=== PATIENT | female | born 1995 | race Caucasian/White ===

== ENCOUNTER 2025-01-19 09:25 | Emergency (ER) | payer OTHER, SELFPAY ==
[2025-01-19] VITALS (8 sets, daily range): BP systolic 110–130; BP diastolic 60–75; PULSE 80–112; RESP 16–28; TEMP 36.7–36.8; O2SAT 96–98; BMI 24.3
--- NOTE | 2025-01-19 09:31 | ECG_ITS ---
APPROVED REPORT Exam: Resting ECG HR:93 bpm ECG Measurements Heart Rate 93 AXES WY 138 P 89 QRSd 80 QRS 89 QT 380 T 83 QTc 431 Conclusion SINUS RHYTHM NORMAL ECG Electronically signed by : BRYANT ARAUJO, 01/19/2025 15:26:17
[2025-01-19] MEDS: ONDANSETRON 4MG/2ML VIAL 4 MG IV (09:45)
[2025-01-19 09:52] LABS: Microscopic, Urine URINE MICROSCOPIC (MICROSCOPIC)
--- NOTE | 2025-01-19 09:52 | ED_ITS ---
Discharge Plan Disposition Patient Disposition: Xfer Other Condition: Good Prescriptions Prescriptions: New metoclopramide HCl [Reglan] 10 mg tablet 10 mg PO Q6H PRN (Reason: nausea and vomiting) Qty: 14 0RF famotidine [Pepcid] 20 mg tablet 20 mg PO BID 28 Days Qty: 56 0RF Activity Restrictions/Add. Instructions Additional Instructions/Restrictions: You were evaluated in the emergency department today. Labs and CT scan are reassuring with exception of dehydration related to your vomiting. Return to the emergency department for new or worsening symptoms. Clinical Impressions Clinical Impression: Polysubstance abuse, Alcohol consumption binge drinking, Cyst of left ovary, Colitis Stand Alone Forms Stand Alone Forms: Work/School Release Instructions Patient Instructions: DI for Alcohol Use Disorder, DI for Nausea -- Adult, DI for Alcohol Poisoning, DI for Alcoholic Gastritis, DI for Cannabinoid Hyperemesis Syndrome Print Language Print Language: Slovak Discharge ED Provider: Talita Kelly General Adult HPI General Chief complaint: Nausea/Vomiting/Diarrhea Stated complaint: Nausea and vomiting Time Seen by Provider: 01/19/25 09:42 Mode of Arrival: EMS Source of Information: Patient Description of Symptoms (Recalled from ER Triage Doc. by RN): pt roomate called 911 and pt states shes here for vomting and abd pain, pt is a binge drinker and last drink was at midnight, pt began vomting at 0330, pt states she drank 1 pint of vodkaa and took 3 50 mg trazadone, pt bilateral legs are covered in bruises from varying states of healiing and sizes and shapes. pt states she has low iron and fell last night, pt states she is also having leg spasms History of Present Illness HPI narrative: This patient is a 29-year-old female who reports a history of binge drinking and marijuana use presenting to the emergency department for evaluation concern for vomiting and generalized abdominal pain. Patient states that she drank vodka all night last night, and she has been vomiting since about 3:30 in the morning. She states that she is vomiting straight stomach acid and cannot keep anything down. She is having cramping and pain all over her abdomen but no localizable pain in any 1 specific area. She has prior history of C-sections but denies prior surgical abdominal history otherwise. No other medical problems noted. She is having leg cramps currently. She has multiple bruises, which she states are from falls in the setting of low iron. She denies any abuse or significant traumatic injury Related Data Previous Rx's ?Medication ?Instructions ?Recorded famotidine 20 mg tablet (Pepcid) 20 mg PO BID 4 weeks #56 tabs 01/19/25 metoclopramide HCl 10 mg tablet 10 mg PO Q6H PRN nause a and 01/19/25 (Reglan) vomiting #14 tabs Allergies Allergy/AdvReac Type Severity Reaction Status Date / Time cephalexin (From Keflex) Allergy Hives Verified 01/19/25 09:41 [facility] Disclaimer: The information contained in this section may have been updated after the patient was seen, as this information can be updated by other users. Social History Smoking Status: Current every day smoker alcohol intake: current current occupational status: unemployed Travel in the last 8 weeks?: None ROS Obtained: Yes All systems reviewed & no additional complaints except as documented Physical Exam General General appearance: alert Comment: Actively vomiting and retching Head Head exam: atraumatic and normocephalic Eye Eye exam: Present normal appearance, PERRL and EOMI ENT ENT exam: Present normal exam, normal oropharynx, mucous membranes moist and normal external ear exam Neck Neck exam: Present normal inspection, full ROM and trachea midline; Absent tenderness Chest Chest inspection: Present normal inspection and symmetric chest wall rise; Absent tenderness Respiratory Respiratory exam: Present normal lung sounds bilaterally; Absent respiratory distress, wheezes, stridor or accessory muscle use Cardiovascular Cardiovascular exam: Present regular rate and normal rhythm Abdominal Exam Abdominal exam: Present soft and tenderness (Mild generalized); Absent distention, guarding, rebound or rigidity Extremities Exam Extremities exam: Present normal inspection, full ROM and normal capillary refill; Absent tenderness or edema Back Exam Back exam: Present normal inspection and full ROM; Absent tenderness Neurological Exam Neurological exam: Present alert, oriented X3, CN II-XII intact and normal gait; Absent motor sensory deficit Psychiatric Psychiatric exam: Present normal affect and normal mood Skin Skin exam: Present warm and dry Medical Decision Making Medical Records Medical records reviewed: Yes I reviewed the patient's medical records. Screening: Per USPSTF and CDC recommendations, given the prevalence of disease in our region, it is our hospital?s policy to screen for HIV and viral Hepatitis for all patients aged 18 and over and those with ongoing risk factors. Darryn Inquiry Pt receiving controlled substance: No Vital Signs: 01/19/25 09:40 01/19/25 10:00 01/19/25 10:30 Temperature 98.2 F Temperature Source Oral Pulse Rate 104 H 112 H Pulse Rate [Left Radial] 101 H Respiratory Rate 28 H 18 16 Blood Pressure 130/72 128/70 Blood Pressure [Right Arm] 125/68 Blood Pressure Mean 84 84 Blood Pressure Mean [Right Arm] 87 02 Sat by Pulse Oximetry 98 96 98 Oxygen Delivery Method Room Air 01/19/25 12:12 01/19/25 12:35 01/19/25 13:00 Temperature Temperature Source Pulse Rate 110 H Pulse Rate [Left Radial] Respiratory Rate 16 18 18 Blood Pressure 110/60 117/67 124/75 Blood Pressure [Right Arm] Blood Pressure Mean Blood Pressure Mean [Right Arm] 02 Sat by Pulse Oximetry 97 Oxygen Delivery Method 01/19/25 14:38 01/19/25 14:41 Temperature 98.0 F 98.0 F Temperature Source Pulse Rate 80 80 Pulse Rate [Left Radial] Respiratory Rate 20 20 Blood Pressure 124/75 124/75 Blood Pressure [Right Arm] Blood Pressure Mean Blood Pressure Mean [Right Arm] 02 Sat by Pulse Oximetry Oxygen Delivery Method Room Air Lab Data Lab results reviewed: Yes I reviewed the patient's lab results. Lab Results 01/19/25 09:30: WBC 12.2 H, RBC 4.63, Hgb 14.6, Hct 42.5, MCV 91.8, MCH 31.5 H, MCHC 34.4, RDW 13.7, Plt Count 361, MPV 9.6, Neut % (Auto) 82.1 H, Lymph % (Auto) 12.4, Braxton % (Auto) 4.3, Eos % (Auto) 0.4, Baso % (Auto) 0.5, Neut # (Auto) 10.0 H, Lymph # (Auto) 1.5, Braxton # (Auto) 0.5, Eos # (Auto) 0.1, Baso # (Auto) 0.1, Sodium 138, Potassium 3.8, Chloride 105, Carbon Dioxide 20 L, Anion Gap 16.8 H, BUN 9, Creatinine 0.60, Estimated Creat Clear 160, Estimated GFR 119, Est GFR ( Amer) 144, Glucose 130 H, Calcium 9.7, Magnesium 1.7, Total Bilirubin 0.6, AST 39 H, ALT 28, Alkaline Phosphatase 118, Total Protein 7.9, Albumin 4.4, Globulin 3.5 H, Albumin/Globulin Ratio 1.3, Lipase 58, TSH 0.94, Thyroxine (T4) 10.5, Salicylates < 1.0 L, Acetaminophen < 10 L, P lasma/Serum Alcohol 57 H, HCV Ab JANIYA w/Rflx PCR Qn Negative, HIV Ag/Ab Combo Qual Negative 01/19/25 09:45: Urine Color Yellow, Urine Appearance Clear, Urine pH 6.5, Ur Specific [place] 1.025, Urine Protein 1+ A, Urine Glucose (UA) Negative, Urine Ketones 1+, Urine Blood Negative, Urine Nitrate Negative, Urine Bilirubin Negative, Urine Urobilinogen 0.2, Ur Leukocyte Esterase Negative, Urine RBC Occasional, Urine WBC None, Ur Squamous Epith Cells 5-10, Urine Bacteria Trace, Urine HCG, Qual Negative, Urine Opiates Screen Negative, Urine Methadone Screen Negative, Ur Barbituates Screen Negative, Ur Phencyclidine Scrn Negative, Ur Amphetamines Screen Negative, U Benzodiazepines Scrn Negative, Urine Cocaine Screen Positive H, U Marijuana (THC) Screen Positive H 01/19/25 09:48: VBG pH 7.50 H, VBG pCO2 27.4 L, VBG pO2 136.4 H, VBG HCO3 20.8 L , VBG Total CO2 21.6 L, VBG O2 Saturation 98.9 H, VBG Base Excess -2.4, VBG Lactic Acid 6.0 H 01/19/25 09:30 01/19/25 09:30 Orders (Tests/Meds): ED MEDICATIONS Discontinued Medications Generic Name Dose Route Start Last Admin Trade Name Julio Cesarq PRN Reason Stop Dose Admin Acetaminophen 1,000 mg 01/19/25 11:04 01/19/25 11:56 Acetaminophen 1,000mg/100ml Vial IV 01/19/25 11:05 1,000 mg ONCE ONE Administration Diphenhydramine HCl 25 mg 01/19/25 11:05 01/19/25 11:48 Diphenhydramine 50mg/Ml Vial IV 01/19/25 11:06 25 mg ONCE ONE Administration Droperidol 2.5 mg 01/19/25 09:47 01/19/25 10:04 Droperidol 5mg/2ml Vial IV 01/19/25 09:48 2.5 mg ONCE ONE Administration Famotidine 20 mg 01/19/25 11:04 01/19/25 11:50 Famotidine 20mg/2ml Vial IV 01/19/25 11:05 20 mg ONCE ONE Administration Lactated Ringer's 1,920 mls @ 960 mls/hr 01/19/25 09:49 01/19/25 10:05 Lactated Ringer's 1000 Ml Bag 30 ml/kg infuse over 2 hr (1920 ml) 01/19/25 11:48 960 mls/hr IV Administration .Q2H ONE Iopamidol 75 ml 01/19/25 11:24 01/19/25 11:24 Iopamidol-370 (76%);100ml Bottle IV 01/19/25 11:25 75 ml ONCE ONE Administration Ketorolac Tromethamine 15 mg 01/19/25 11:04 01/19/25 11:54 Ketorolac 30mg/Ml Vial IV 01/19/25 11:05 15 mg ONCE ONE Administration Metoclopramide HCl 10 mg 01/19/25 11:05 01/19/25 11:55 Metoclopramide Hcl 10mg/2ml Vial IVP 01/19/25 11:06 10 mg ONCE ONE Administration Ondansetron HCl 4 mg 01/19/25 09:41 01/19/25 09:45 Ondansetron 4mg/2ml Vial IV 01/19/25 09:42 4 mg ONCE ONE Administration Sodium Chloride 8 ml 01/19/25 11:04 01/19/25 11:52 Sodium Chloride 0.9% 10ml Vial IV 02/18/25 11:03 8 ml NEEDED PRN Administration dilute pepcid Sodium Chloride 10 ml 01/19/25 11:24 01/19/25 11:24 Sodium Chloride 0.9% 10ml Syr (Rad Only) IV 01/19/25 11:25 10 ml ONCE ONE Administration ORDERS Category Date Time Status CT abdomen pelvis w con Stat Cat Scan 01/19/25 10:57 Completed Consult Horticultural Manager [CONS] Routine Cons 01/19/25 09:56 Active Acetaminophen Stat Lab 01/19/25 09:30 Completed Complete Blood Count Auto Diff Stat Lab 01/19/25 09:30 Completed Comprehensive Metabolic Panel Stat Lab 01/19/25 09:30 Completed Ethanol [Ethyl Alcohol] Stat Lab 01/19/25 09:30 Completed HIV Combo Stat Lab 01/19/25 09:30 Completed Hepatitis C Ab Qual. W/ RFX Stat Lab 01/19/25 09:30 Completed Lactic Acid Follow Up (RFLX 1) Stat Lab 01/19/25 13:58 Ordered Lipase Stat Lab 01/19/25 09:30 Completed MAG [Magnesium] Stat Lab 01/19/25 09:30 Completed Salicylate Stat Lab 01/19/25 09:30 Completed T4 (Thyroxine) Stat Lab 01/19/25 09:30 Completed TSH [Thyroid Stimulating Hormone] Stat Lab 01/19/25 09:30 Completed UA [Urinalysis and Microscopic] Stat Lab 01/19/25 09:45 Completed UDS [Drug Screen,Urine] Stat Lab 01/19/25 09:45 Completed Urine , HCG Qual. Stat Lab 01/19/25 09:45 Completed VBG [Venous Blood Gas] Stat RT 01/19/25 09:48 Completed ECG Data Tracing #1: I reviewed this ECG and interpreted as documented below: Normal sinus rhythm with ventricular rate of [address] changes concerning for STEMI. Normal axis and intervals ECG initial impression date: 01/19/25 ECG initial impression time: 09:42 Medical Decision Narrative: In summary, this patient is a 29-year-old female presenting to the Emergency Department for evaluation of generalized abdominal pain, nausea, and vomiting in the setting of binge drinking and marijuana use. Differential diagnoses considered include but are not limited to cyclic vomiting syndrome, cannabis hyperemesis syndrome, alcohol withdrawal, alcohol intoxication, cholecystitis, pancreatitis, gastroenteritis, appendicitis among others. Ruling out the most morbid conditions drove assessment. It should be noted patient's history includes binge drinking which is not at goal therapy. This complicates all aspects of care by increasing patient's risk for morbidity. On exam, the patient is sitting upright actively vomiting and retching. She has generalized abdominal tenderness but nothing localizable. Vitals are reassuring on cardiac telemetry and she is afebrile and nontoxic. EMS arrived to the patient who noted she was stable en route. Patient was initially given Zofran here without any improvement in her symptoms. She continued vomiting. Workup included CBC, CMP, lipase, magnesium, phosphorus, ethanol level, urinalysis, urine drug screen, TSH, T4, acetaminophen, salicylate, VBG, test, EKG. EKG obtained is reassuring. She was given a bolus of IV fluids as well as IV droperidol for symptomatic improvement, as she initially got no improvement with Zofran. She was also given sepsis bolus of IV fluids. Labs obtained demonstrate mild leukocytosis, elevation in lactic at 6, respiratory alkalosis, mildly elevated AST in the setting of alcohol consumption. Urinalysis is not concerning for infection. Urine drug screen is positive for cocaine and marijuana. Serum alcohol level is 57. On multiple subsequent reassessments, the patient continues to have vomiting and abdominal pain. In addition to the droperidol, fluids, and Zofran, she was then given IV Reglan, Benadryl, Pepcid, acetaminophen, and Toradol to assess for symptomatic improvement. For continued symptoms, elected to obtain CT abdomen/pelvis with IV contrast. I independently interpreted CT prior to radiology read and noted nonspecific inflammation of her intestines without acute obstructive process, no appendicitis, no cholecystitis. Patient did have good improvement after administration of these medications and she is resting comfortably with benign abdominal exam, reassuring vitals. She is able to tolerate oral intake of fluids. Given this, feel that she is appropriate for discharge home. Will prescribe Reglan and Pepcid. global mobility specialist discussed placement in treatment center for the patient with her substance use. Patient is agreeable with this. She was transported in stable condition. Critical Care Critical Care Time Critical Care Time: No
--- OUTSIDE RECORDS SUMMARY | 2025-01-19 09:55 | XMS_ITS | Encounter Summary ---
Author Organization Healthcare Address [address] [place] [address] Care Team Providers Care Supervisor Agency Appointments Name Role Phone Sead Lerma APRN Primary Care Provider [phone] Encounter Details Date Type Department Care Team ([facility] st Contact Info) Description 02/20/2022 Outside Procedure External Location [address] [place] [id number] ProviderCony Social History Tobacco Use Types Packs/Day Years Used Date Smoking Tobacco: Every Day Cigarettes Smokeless Tobacco: Current Alcohol Use Standard Drinks/Week Comments Never 0 (1 standard drink = 0.6 oz pur e alcohol) PHQ-2 Answer Date Recorded Patient Health Questionnaire-2 Score 0 04/30/2021 Magdalena Depression Scale Answer Date Recorded Magdalena Depression Scale Total 0 01/17/2022 The thought of harming myself has occurred to me . Never 01/17/2022 Comments No Sex and Gender Information Value Date Recorded Sex Assigned at Not on file Legal Sex Female 5:59 PM EDT Gender Identity Not on file Sexual Orientation Not on file COVID-19 Exposure Response Date Recorded In the last 10 days, have yo u been in contact with someone who was confirmed or suspected to have Coronavirus/COVID-19? No / Unsure 02/04/2022 3:29 PM EDT documented as of this encounter Plan of Treatment Not on file documented as of this encounter Procedures Procedure Name Priority Date/Time Associated Diagnosis Comments XR CHEST 1 VIEW 02/20/2022 1:05 PM EDT documented in this encounter Results * XR Chest 1 View (02/20/2022 1:05 PM EDT) Anatomical Region Laterality Modality Chest Radiographic Helen ging 02/20/2022 1:05 PM EDT Narrative 02/20/2022 1:44 [place] [address] Name: NEL DUONG Exam Date: 02/20/2022 : 1995 Age 26 Gender: F Physician: TAYA MERCER Facility: [facility] Facility HSV: Outpatient Exam: CHEST PORTABLE CHEST, 1 view HISTORY: Chest pain COMPARISON: None. FINDINGS: The lungs are clear. There is no evidence of effusion or other pleural disease. The mediastinum has a normal appearance. The cardiac silhouette is unremarkable. IMPRESSION: Unremarkable chest exam. Dictated By: Tricia Seo Transcribed By: Tricia Miranda Transcribed On: 02/20/2022 1:33 PM Electronically signed by: Tricia Seo 02/20/2022 Thank you for referring NEL DUONG to [facility]. Legally authenticated by GEMA ARREDONDO 2022-02-20 13:33:16 Procedure Note Provider, [facility] - 02/20/2022 [place] [address] Name: NEL DUONG Exam Date: 02/20/2022 : 1995 Age 26 Gender: F Physician: TAYA MERCER Facility: [facility] Facility HSV: Outpatient Exam: CHEST PORTABLE CHEST, 1 view HISTORY: Chest pain COMPARISON: None. FINDINGS: The lungs are clear. There is no evidence of effusion or other pleural disease. The mediastinumhas a normal appearance. The cardiac silhouette is unremarkable. IMPRESSION: Unremarkable chest exam. Dictated By: Tricia Seo Transcribed By: Tricia Miranda Transcribed On: 02/20/2022 1:33 PM Electronically signed by: Tricia Seo 02/20/2022 Thank you for referring NEL DUONG to [facility]. Legally authenticated by GEMA ARREDONDO 2022-02-20 13:33:16 us Generic [place] Provider IMG XR PROCEDURES Fi nal Result documented in this encounter Visit Diagnoses Not on filedocumented in this encounter Additional Health Concerns Infection Onset Date Last Indicated Resolved Time COVID-19 Rule-Out 05/01/2023 05/01/2023 05/01/2023 10:12 PM EST COVID 19 (Confirmed) 05/01/2023 05/01/2023 023 5:23 AM EST documented as of this encounter Care Teams Supervisor Agency Appointments Relationship Specialty Start Date End Date Seda Lerma, CITY DISTRIBUTION CLERK [address] [place] [id number] PCP - General 11/03/20 documented as of this encounter
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
--- OUTSIDE RECORDS SUMMARY | 2025-01-19 09:55 | XMS_ITS | Encounter Summary ---
Author Organization Healthcare Address [address] [place] [address] Care Team Providers Care Plastic Surgery Assistant Name Role Phone Seda Lerma APRN Primary Care Provider [phone] Encounter Details Date Type Department Care Team ([facility] st Contact Info) Description 01/06/2024 Outside Procedure External Location [address] [place] [id number] ProviderCony Social History Tobacco Use Types Packs/Day Years Used Date Smoking Tobacco: Every Day Cigarettes 0.5 5 Passive Smoke Exposure: Current Comments:vapes Alcohol Use Standard Drinks/Week Comments Not Currently 0 (1 standard drink = 0.6 oz pur e alcohol) 4 months sober Humiliation, Afraid, Rape, and Kick questionnair e Answer Date Recorded Within the last year, have y ou been afraid of your partner or ex-partner? No 09/16/2023 Within the last year, have y ou been humiliated or emotionally abused in other ways by your partner or ex-partner? No Within the last year, have y ou been kicked, hit, slapped, or otherwise physically hurt by your partner or ex-partner? No 09/16/2023 Within the last year, have y ou been raped or forced to have any kind of sexual activity by your partner or ex-partner? No 09/16/2023 PHQ-2 Answer Date Recorded Patient Health Questionnaire-2 Score 1 12/01/2023 Hunger Vital Sign Answer Date Recorded Within the past 12 months, y ou worried that your food would run out before you got the money to buy more. Never true 09/16/19 24 Within the past 12 months, t he food you bought just didn't last and you didn't have money to get more. Never true 09/16/2023 PRAPARE - Transportation Answer Date Re corded In the past 12 months, has l ack of transportation kept you from medical appointments or from getting medications? No 08/22 In the past 12 months, has l ack of transportation kept you from meetings, work, or from getting things needed for daily living? No 09/16/2023 Housing Stability Vital Sign Answer Koko e Recorded In the last 12 months, was t here a time when you were not able to pay the mortgage or rent on time? No 09/16/2023 In the last 12 months, how many places have you lived? 1 09/16/2023 In the last 12 months, was t here a time when you did not have a steady place to sleep or slept in a longterm (including now)? No 09/16/2023 [place] Depression Scale Answer Date Recorded [place] Depression Scale Total 3 04/01/2023 The thought of harming myself has occurred to me . Never 04/01/2023 Safety and Environment Answer Date Ambrose rded Do you worry that your child may have been physically abused? Did not ask 09/16/2023 Do you worry that your child may have been sexua lly abused? Did not ask 09/16/2023 Are there any guns kept in o r around your home or where your child spends time? Did not ask 09/16/2023 Guns Unloaded or Locked Away Not on file Utilities Answer Date Recorded In the past 12 months has th e electric, gas, oil, or water company threatened to shut off services in your home? No 09/16/2023 PHQ-2A Answer Date Recorded Patient Health Questionnaire-2 [...] Name Priority Date/Time Associated Diagnosis Comments XR FOOT LEFT 3+ VIEWS 01/06/2024 12:17 AM EDT documented in this encounter Results * XR Foot Left 3+ Views (01/06/2024 12:17 AM EDT) Anatomical Region Laterality Modality Lower Extremities, Foot Left Digital Radiography 01/06/2024 12:1 7 AM EDT Narrative 01/06/2024 1:13 [place] [address] Name: NEL DUONG Exam Date: 01/06/2024 : 1995 Age 28 years Gender: F Physician: NIMESH MADDEN Facility: [facility] Facility HSV: Outpatient Exam: FOOT LT 3V FINAL REPORT TECHNIQUE: null CLINICAL HISTORY: .left foot and ankle pain, fall COMPARISON: null FINDINGS: 3 view left foot Comparison: None Findings: Bones/joints: No acute fracture or dislocation. Joint spaces maintained. No suspicious osseous lesions. Soft tissues: No acute pathology. IMPRESSION: IMPRESSION: No acute fracture or dislocation. Authenticated and [facility] Dictated By: Maria Eugenia Mora Transcribed By: Transcribed On: 01/06/2024 1:10 AM Electronically signed by: Maria Eugenia Mora 01/06/2024 Thank you for referring NEL DUONG to [facility]. Legally authenticated by LISANDRA ZHANG 2024-01-06 01:10:00 Procedure Note Provider, Generic [place] - 01/06/2024 [place] [address] Name: NEL DUONG Exam Date: 01/06/2024 : 1995 Age 28 years Gender: F Physician: NIMESH MADDEN Facility: [facility] Facility HSV: Outpatient Exam: FOOT LT 3V FINAL REPORT TECHNIQUE: null CLINICAL HISTORY: .left foot and ankle pain, fall COMPARISON: null FINDINGS: 3 view left foot Comparison: None Findings: Bones/joints: No acute fracture or dislocation. Joint spaces maintained. No suspicious osseous lesions. Soft tissues: No acute pathology. IMPRESSION: IMPRESSION: No acute fracture or dislocation. Authenticated and [facility] Dictated By: Maria Eugenia Mora Transcribed By: Transcribed On: 01/06/2024 1:10 AM Electronically signed by: Maria Eugenia Mora 01/06/2024 Thank you for referring NEL DUONG to [facility]. Legally authenticated by LISANDRA ZHANG 2024-01-06 01:10:00 Generic [place] Provider IMG XR PROCEDURES Fi nal Result documented in this encounter Visit Diagnoses Not on filedocumented in this encounter Additional Health Concerns Assessment Noted Time A fall risk assessment has been complete d for the patient 04/17/2023 10:10 AM EDT A Body Mass Index follow-up plan has been documented for the patient 12/01/2023 10:39 AM EDT documented as of this encounter Care Teams Plastic Surgery Assistant Relationship Specialty Start Date End Date Seda Lerma APRN [address] [place] [address] PCP - General 11/03/20 documented as of this encounter
--- OUTSIDE RECORDS SUMMARY | 2025-01-19 09:55 | XMS_ITS | Clinical Summary ---
Author Organization [facility] Address [address] [place] [address] Care Team Providers Care Wire Inspector Name Role Phone Florentin, Seda Mac APRN Primary Care Provider [phone] Allergies Active Allergy Reactions Criticality Noted Date Comments Cephalexin Hives,Rash Medium 01/24/2021 Other reaction(s): Adverse reaction to substance Medications levonorgestrel (Mirena) 20 MCG/DAY IUD 1 each by Intrauterine route 1 (one) time. Active albuterol 108 (90 Base) MCG/ACT inhalerIndications :Wheezing Inhale 2 puffs every 4 (four) hours if needed for wheezing. 1 each 3 08/05/19 24 Active hydrOXYzine pamoate (Vistaril) 25 MG capsuleIndications :Generalized anxiety disorder Take 1 capsule (25 mg) by mouth 3 (three) times a day if needed for anxiety. 60 capsule 3 08/05/19 24 Active escitalopram (Lexapro) 10 MG tablet Take 1.5 tablets (15 mg) by mouth 1 (one) time each day. Active levothyroxine (Synthroid, Levoxyl) 50 MCG tabletIndications: Adult hypothyroidism Take 1 tablet (50 mcg) by mouth 1 (one) time each day. 30 tablet 11 12/01/19 24 Active ferrous sulfate 325 (65 Fe) MG tablet Take 1 tablet (325 mg) by mouth 1 (one) time each day with breakfast. 90 tablet 2 01/09/20 24 Active Vivitrol 380 MG reconstituted suspension injection Inject 4.2 mL (380 mg) into the muscle every 28 (twenty-eight) days. 03/26/20 24 Active cyclobenzaprine (Flexeril) 10 MG tabletIndications: Acute thoracic back pain, unspecified back pain laterality,Lumbar back pain TAKE 1 TABLET BY MOUTH 3 TIMES A DAY FOR 5 DAYS 15 tablet 06/28/19 25 Active ondansetron ODT (Zofran-ODT) 4 MG disintegrating tabletIndications: Nausea DISSOLVE ONE TABLET BY MOUTH EVERY 8 HOURS NEEDED FOR NAUSEA AND/OR VOMITING 20 tablet 06/28/19 25 Active traZODone (Desyrel) 50 MG tabletIndications: Major depressive disorder, recurrent, moderate (CMS/HCC) TAKE 1 TABLET BY MOUTH EVERY NIGHT AT BEDTIME NEEDED FOR SLEEP 90 tablet 10/14/19 25 Active ibuprofen 800 MG tablet TAKE ONE TABLET BY MOUTH EVERY 8 HOURS NEEDED FOR ABDOMINAL PAIN/DISCOMFORT 60 tablet 3 10/14/19 25 Active Active Problems Problem Noted Date Diagnosed Date Migraine without aura, not i ntractable, with status migrainosus 07/03/2023 Cervicalgia 05/21/2023 Decreased movements in third trimester Assessment & Plan (02/27/2023 8:16 AM EDT): - Patient reporting decreased fluid movement for past week - Patient also experiencing contractions - Cervix closed on physical exam - NST: initially had 1 variable deceleration, but reactive after extended monitoring. BPP performed 01/28 - Patient advised to go to the hospital for extended monitoring if concerns persist Assessment & Plan (02/17/2023 12:23 PM EDT): Patient reporting decreased fluid movement for past 3 days Patient also experiencing contractions Cervix closed on physical exam NST reactive Patient advised to go to the hospital for fluids and extended monitoring Bleeding 02/17/2023 Assessment & Plan (02/17/2023 11:55 AM EDT): Patient endorses 1 episode of bleeding this morning while on the toilet Regular BM, denies constipation Unclear if bleeding from rectum or vagina No evidence of bleeding from anus or vagina on physical exam Patient advised to go to the hospital for monitoring Restless legs 01/13/2023 Assessment & Plan (02/17/2023 11:49 AM EDT): Continues to have symptoms Might be secondary to dehydration ISO of recent abdominal pain, nausea, and vomiting Advised to go to ED for fluids Assessment & Plan (01/27/2023 2:34 PM EDT): Continues to have symptoms despite supplements Continue iron, magnesium, potassium, vitamin c supplements Vistaril TID PRN 25mg Assessment & Plan (01/13/2023 1:34 PM EDT): - encouraged increased magnesium, potassium in diet - will check CBC, iron studies H/O section 08/08/2021 Assessment & Plan (08/09/2022 3:28 PM EST): Plan R C/S and BTL Assessment & Plan (10/05/2021 1:20 PM EDT): Assessment & Plan (08/08/2021 1:21 PM EST): state, incidental 06/08/2021 Assessment & Plan (02/26/2023 5:07 PM EDT): - GBS today - cervix closed - Nitrazine test negative - continue PNV - continue flexeril and zofran as needed - RTC in 1 week - plan repeat for 03/14 Assessment & Plan (02/17/2023 12:23 PM EDT): Continue vitamin Continue flexeril and zofran as needed GBS at 36 weeks RTC in 1 week Plan repeat for 03/14 Assessment & Plan (01/27/2023 2:30 PM EDT): Continue vitamin Growth US today- growth percentile 59%, AC 80%, cephalic, BPP 8/8, FHR 135, UAD 87%, RICHARD 15cm, normal limited anatomy Continue flexeril and zofran as needed GBS at 36 weeks RTC in 2 weeks Plan repeat for 03/14 Assessment & Plan (01/13/2023 1:30 PM EDT): - labs reviewed - continue PNV - plan R C/S - scheduled for 03/[address] Marcus - growth US ordered for S>D - flexeril, zofran refilled - RTC 2 weeks Assessment & Plan (12/02/2022 1:07 PM EDT): - labs reviewed, normal willi US - glucola today - continue PNV - plan R C/S - discussed Tdap for next visit - RTC 4 weeks Assessment & Plan (11/04/2022 2:27 PM EDT): - labs reviewed - prelim willi US normal - continue PNV - PT referral placed, info for chiropractor given for sciatic pain - glucola given for next visit - plan R C/S - RTC 4 weeks Assessment & Plan (10/07/2022 2:23 PM EDT): - labs reviewed - continue PNV - willi US scheduled - RTC 4 weeks Assessment & Plan (09/09/2022 1:03 PM EDT): - labs reviewed - normal NT, NIPT low risk male - chlamydia DAVID today - continue PNV - willi US ordered - RTC 4 weeks Assessment & Plan (08/09/2022 3:28 PM EST): - labs today - pap - US shows viable SIUP with CRL c/w LMP, keep YAS 03/21/23 - desires genetic screening - FTS US ordered, desires NIPT - continue PNV - new OB backpack given - zofran Rx sent - RTC 4 weeks Assessment & Plan (01/10/2022 12:32 PM EDT): - continue PNV and baby ASA - GBS negative - plan for R c/s on 01/15 - consents signed today - strict return precautions provided Assessment & Plan (12/17/2021 4:09 PM EDT): - continue PNV and baby ASA - Prelim growth US: vertex, anterior placenta - no longer low lying, EFW 41%, AC 47%, RICHARD 9.6, BPP 8/8, normal dopplers, right pelvic kidney. Had normal FTS. No other anatomic abnormalities on ultrasound. Final read pending. Likely will just need renal ultrasound. - recommended antihistamine for ear pressure/pain, and dentist apt to make sure it is not referred pain. If not improved in a few days, will try course of antibiotics. - GBS at 36 weeks - plan for R c/s - continue weekly NST and routine visit Assessment & Plan (12/14/2021 3:24 PM EDT): - continue PNV and baby ASA - GBS at 36 weeks - plan for R c/s - continue weekly NST and routine visit Assessment & Plan (12/07/2021 5:16 PM EDT): - continue PNV and baby ASA - GBS at 36 weeks - plan for R c/s - continue weekly NST and routine visit Assessment & Plan (11/30/2021 5:03 PM EDT): - labs reviewed, final read on US last week confirms low lying placenta - repeat US ordered - continue PNV and baby ASA - GBS at 36 weeks - flexeril Rx sent for rib/MSK pain - plan for R c/s - continue 2x weekly NST and routine visit Assessment & Plan (11/16/2021 3:47 PM EDT): - labs reviewed, final read on US last week confirms low lying placenta - continue PNV and baby ASA - RTC 2 weeks - start NSTs at that time Assessment & Plan (11/05/2021 3:13 PM EDT): - Prelim growth US: vertex, anterior/low lying placenta, EFW 73%, RICHARD 18, normal dopplers, BPP 8/8 - Tdap today - labs reviewed - continue PNV - RTC 2 weeks Assessment & Plan (10/25/2021 5:12 PM EDT): - labs reviewed - continue PNV - discussed Tdap at next visit - RTC 2 weeks Assessment & Plan (10/19/2021 4:48 PM EDT): - labs reviewed - continue PNV - discussed Tdap at next visit - RTC 2 weeks Assessment & Plan (10/05/2021 1:21 PM EDT): - labs reviewed - glucola today - willi US normal, need additional heart views - RTC 2 weeks Assessment & Plan (09/05/2021 9:48 AM EDT): - labs reviewed - Prelim willi US: vertex, ant plac, normal CL, limited normal willi - glucola given for next apt - RTC 4 weeks Assessment & Plan (08/08/2021 1:21 PM EST): - labs reviewed, FTS normal - continue PNV and baby ASA - boy on ultrasound! - willi US ordered - RTC 4 weeks Assessment & Plan (07/27/2021 1:31 PM EST): - abd pain seems MSK vs. Round ligament pain. Active fetus on ultrasound. Will try Flexeril. Rx sent - UA, urine culture sent to rule out UTI - not tolerating PO phenergan. Rectal phenergan and zofran ODT Rx sent - baby ASA sent for COVID - RTC for scheduled visit Assessment & Plan (07/11/2021 3:42 PM EST): - labs reviewed - NT normal today - blood work done - continue PNV and antiemetics - RTC 4 weeks - gender scan Assessment & Plan (06/08/2021 2:14 PM EST): - labs today - pap 2019 normal - will need pap - TVUS: viable SIUP c/w LMP, keep YAS 01/21/22 - desires genetic screening - FTS US ordered - PNV ordered - Vit B6, unisom, phenergan Rx sent for nausea - RTC 4 weeks Migraines 12/09/2019 Carpal tunnel syndrome 03/14/2016 Anxiety 11/16/2015 Resolved Problems Problem Noted Date Diagnosed Date Resolved Date Uterine size-date discrepanc y in third trimester 01/13/2023 01/27/2023 Hyperemesis 09/09/2022 10/07/2022 Assessment & Plan (09/09/2022 1:43 PM EDT): - continue 2x weekly infusions Headache in , 02/05/2022 08/09/2022 Assessment & Plan (02/05/2022 10:42 AM EDT): - headache present for since delivery that is non-responsive to medication. - BP normal - no symptoms of pre-eclampsia - will try Fioricet and magnesium - given the severity of the headahce, will order CT venogram of head. exam 01/25/2022 08/09/2022 Assessment & Plan (02/05/2022 10:41 AM EDT): - will need pap - desires Mirena - RTC 2 weeks for pap and Mirena Acute vaginitis 12/14/2021 08/09/2022 Assessment & Plan (12/14/2021 3:24 PM EDT): - diflucan Rx sent Low lying placenta nos or wi thout hemorrhage, third trimester 12/07/2021 08/09/2022 Assessment & Plan (12/17/2021 3:41 PM EDT): Low lying placenta resolved on ultrasound today Assessment & Plan (12/14/2021 3:24 PM EDT): - repeat US 12/17 Assessment & Plan (12/07/2021 5:16 PM EDT): - repeat US scheduled Decreased movements in second trimester 10/26/1908/09/2022 Assessment & Plan (10/25/2021 5:14 PM EDT): - active fetus on ultrasound. Does have an anterior/fundal placenta, discussed that she may not feel as much movement - discussed eating/drinking something sugary if decreased movements, and then feel for kick counts. If abnormal come to office or hospital for evaluation Uterine size-date discrepanc y in second trimester 10/19/2021 08/09/2022 Assessment & Plan (10/25/2021 5:12 PM EDT): - S>D, growth US 11/05 Assessment & Plan (10/19/2021 4:48 PM EDT): - S>D, growth US ordered COVID-19 affecting in third trimester 08/08/2021 08/09/2022 Assessment & Plan (12/17/2021 3:42 PM EDT): Continue baby ASA and weekly NSTs Assessment & Plan (12/14/2021 3:23 PM EDT): Continue baby ASA and weekly NSTs Assessment & Plan (12/07/2021 5:17 PM EDT): Continue baby ASA and weekly NSTs Assessment & Plan (11/30/2021 5:02 PM EDT): Continue baby ASA and 2x weekly NSTs Assessment & Plan (11/16/2021 3:47 PM EDT): - continue baby ASA - start NSTs at 32 weeks Assessment & Plan (11/05/2021 2:54 PM EDT): - continue baby ASA - start NSTs at 32 weeks Assessment & Plan (10/25/2021 5:11 PM EDT): - continue baby ASA - start NSTs at 32 weeks Assessment & Plan (10/19/2021 4:47 PM EDT): - continue baby ASA - start NSTs at 32 weeks Assessment & Plan (10/05/2021 1:19 PM EDT): Continue baby ASA and 2x weekly NSTs Assessment & Plan (09/05/2021 9:48 AM EDT): - start NSTs at 32 weeks - continue baby ASA Assessment & Plan (08/08/2021 1:21 PM EST): - start NSTs at 32 weeks - continue baby ASA Encounter for Nexplanon removal 03/02/2021 08/09/2022 Assessment & Plan (03/02/2021 5:16 PM EDT): - nexplanon not palpated in left upper extremity - will get Xray of LUE and magdaleno, return for removal after Xray Immunizations Immunization Administration Dates Next Due Influenza, injectable, quadr ivalent, preservative free 06/09/2017,06/09/2017 Tdap 01/03/2023,,10/29/2017,2017 Family History Medical History Relation Name Comments Colon cancer Maternal Great-Grandmother Relation Name Status Comments Maternal Great-Grandmother Social History Tobacco Use Types Packs/Day Years Used Date Smoking Tobacco: Every Day Cigarettes 0.5 5 Passive Smoke Exposure: Current Tobacco Cessation:Ready to Q uit: Not Asked; Counseling Given: Not Answered Comments:vapes Alcohol Use Standard Drinks/Week Comments Not Currently 0 (1 standard drink = 0.6 oz pur e alcohol) 4 months sober Humiliation, Afraid, Rape, and Kick questionnair e Answer Date Recorded Within the last year, have y ou been afraid of your partner or ex-partner? No 05/13/2024 Within the last year, have y ou been humiliated or emotionally abused in other ways by your partner or ex-partner? No Within the last year, have y ou been kicked, hit, slapped, or otherwise physically hurt by your partner or ex-partner? No 05/13/2024 Within the last year, have y ou been raped or forced to have any kind of sexual activity by your partner or ex-partner? No 05/13/2024 PHQ-2 Answer Date Recorded Patient Health Questionnaire-2 Score 0 05/13/2024 Hunger Vital Sign Answer Date Recorded Within the past 12 months, y ou worried that your food would run out before you got the money to buy more. Never true 05/13/20 24 Within the past 12 months, t he food you bought just didn't last and you didn't have money to get more. Never true 05/13/2024 PRAPARE - Transportation Answer Date Re corded In the past 12 months, has l ack of transportation kept you from medical appointments or from getting medications? No 04/24 In the past 12 months, has l ack of transportation kept you from meetings, work, or from getting things needed for daily living? No 05/13/2024 Housing Stability Vital Sign Answer Koko e [...] place to sleep or slept in a long-term (including now)? No 09/16/2023 [place] Depression Scale Answer Date Recorded [place] Depression Scale Total 3 04/01/2023 The thought of harming myself has occurred to me . Never 04/01/2023 PHQ-9 Answer Date Recorded Patient Health Questionnaire-9 Score 0 05/13/2024 Housing Stability Vital Sign Answer Koko e Recorded In the last 12 months, was t here a time when you were not able to pay the mortgage or rent on time? No 05/13/2024 In the past 12 months, how m any times have you moved where you were living? 1 05/13/2024 At any time in the past 12 m [facility], were you homeless or living in a long-term (including now)? No 05/13/2024 Safety and Environment Answer Date Ambrose rded Do you worry that your child may have been physically abused? No 05/13/2024 Do you worry that your child may have been sexua lly abused? No 05/13/2024 Are there any guns kept in o r around your home or where your child spends time? No 05/13/2024 Guns Unloaded or Locked Away Not on file 11/ Utilities Answer Date Recorded In the past 12 months has th e [employer], gas, oil, or water [employer] threatened to shut off services in your home? No 05/13/2024 PHQ-2A Answer Date Recorded Patient Health Questionnaire-2 Score 0 05/01/2023 Comments No Sex and Gender Information Value Date Recorded Sex Assigned at Not on file Legal Sex Female 5:59 PM EDT Gender Identity Not on file Sexual Orientation Not on file Last Filed Vital Signs Vital Sign Reading Time Taken Comments Blood Pressure 118/74 05/13/2024 8:07 AM EST Pulse 92 05/13/2024 8:07 AM EST Temperature 36.8 C (98.2 F) 05/13/2024 8:07 AM EST Respiratory Rate 18 05/13/2024 8:07 AM EST Oxygen Saturation 97% 05/13/2024 8:07 AM EST Inhaled Oxygen Concentration - - Weight 88.3 kg (194 lb 9.6 oz) 05/13/2024 8:07 A M EST Height 172.7 cm (5' 8 ) 05/13/2024 8:07 AM EST Body Mass Index 29.59 05/13/2024 8:07 AM EST Plan of Treatment Health Maintenance Due Date Last Done Comments [facility]-Varicella Vaccines (1 of 2 - 13+ 2-dose series) 2009 HPV Vaccines (1 - 3-dose series) 2011 [facility]-Hepatitis B Vaccines (1 of 3 - 19+ 3-dose series) 2015 [facility]-Pneumococcal Vaccine: Pediatrics (0 to 5 Years) and At-Risk Patients (6 to 49 Years) (1 of 2 - PCV) 2015 ZOG-[id number]-76 Vaccine (2 - Veronica risk series) 05/18/2021 04/20/2021 [facility]-Pap Smear 10/13/2021 10/13/2018 [facility]- SDOH Screenings 11/10/2024 [facility]-Adult SDOH Screenings 11/10/2024 05/13/2024 [facility]-Infant/Child/Adol SDOH Screenings 11/10/2024 05/13/2024 [facility]-Influenza Vaccine (#1) 2025 06/09/2017, [facility]-Depression Screening 05/13/2025 024, 05/13/2024, 04/01/2023 [facility]-DTaP,Tdap,and Td Vaccines (5 - Td or Tdap) 01/03/2033 01/03/2023, 11/05/2021, 10/29/2017, Additional history exists [facility]-Zoster Vaccines (1 of 2) 2046 [facility]-HIV Screening Completed 08/09/2022, , 10/13/2018, Additional history exists [facility]-Hepatitis C Screening Completed 2023, 08/09/2022, 06/08/2021, Additional history exists [facility]-Obesity Intervention Completed 024, 01/23/2024, 12/01/2023, Additional history exists [facility]-HIB Vaccines Aged Out No longer e ligible based on patient's age to complete this topic [facility]-Hepatitis A Vaccines Aged Out No longer eligible based on patient's age to complete this topic [facility]-IPV Vaccines Aged Out No longer e ligible based on patient's age to complete this topic [facility]-Rotavirus Vaccines Aged Out No lo nger eligible based on patient's age to complete this topic Procedures Procedure Name Priority Date/Time Associated Diagnosis Comments ACUTE HEPATITIS PANEL Routine 07/03/2023 10:38 AM EST Migraine without aura and with status migrainosus, not intractable HIV 1/2 ANTIBODY/ANTIGEN SCREEN WITH REFLEX TO HIV I/II DIFFERENTIATION Routine 08/09/2022 3:24 PM EST state, incidental H/O section CYTO DATA CONVERSION Routine 10/13/2018 12:00 AM EDT from Last 3 Months or Most Recently Relevant to Health Maintenance Results * Acute Hepatitis Panel (07/03/2023 10:38 AM EST) Hepatitis B Surf Antigen Negative Negative 07/03/2023 2:28 PM EST [facility] Hepatitis C Antibody Negative Negative 07/03/2023 2:28 PM EST [facility] Hepatitis A Antibody IgM Negative Negative 07/03/2023 2:28 PM EST [facility] Hepatitis B Core Antibody IgM Negative Negative 07/03/2023 2:28 PM EST [facility] Blood Venous blood specimen / Unknown Venipuncture / Unknown 07/03/2023 10:38 AM EST 07/03/2023 10:38 AM EST us Seda Lerma APRN LAB BLOOD ORDERABLES Final Re sult Performing Organization Address [facility]/ZIP Co de Phone Number [facility] [address] [place] [address] * HIV 1 & 2 Antibody/Antigen Screen (08/09/2022 3:24 PM EST) HIV 1 & 2 Antibody/Antigen Screen Non Reactive Non Reactive 08/09/2022 6:15 PM EST [facility] Comment:Screening for HIV 1 & 2 antibodies, and P24 antigen is NONREACTIVE. No confirmatory testing is required. Blood Venous blood specimen / Unknown Venipuncture / Unknown 08/09/2022 3:24 PM EST 08/09/2022 5:40 PM EST Michelle Cherry MD LAB BLOOD ORDERABLES Fin al Result Performing Organization Address [facility] Co de Phone Number [facility] [address] [place] [address] * Cytology (10/13/2018 12:00 AM EDT) 10/13/2018 10/14/2018 10: 07 AM EDT Narrative SUNQUEST - 10/20/2018 11:07 AM EDT [facility] MR #: [id number] [place] [id number] 1995 (Age: 23) FW Collect Date: 10/13/2018 00:00 Receipt Date: 10/14/2018 10:07 Page 1 DEPARTMENT OF PATHOLOGY AND LABORATORY MEDICINE CYTOPATHOLOGY REPORT Email: [email or web address] ATTENDING MD/Practitioner: Sergio Lerma APRN Service: [facility] Location: [facility] Reported: 10/20/2018 11:07 Collected: 10/13/2018 00:00 INTERPRETATION A. THIN PREP (CERVICAL/VAGINAL): NEGATIVE FOR INTRAEPITHELIAL LESION OR MALIGNANCY. SATISFACTORY FOR EVALUATION; ENDOCERVICAL/ TRANSFORMATION ZONE COMPONENT PRESENT. Slide scanned and imaged by [employer] ThinPrep Imaging System with manual review of all selected denny. Please see the ASCCP website (www.asccp.org) for followup recommendations. Correlation with the results of HPV testing is also suggested (please call Microbiology at [phone] for results). Electronically Signed Out By SAYRA Veloz (ASC) SAYRA Veloz (ASC) Cervical cytology is a screening test primarily for squamous cancers and precursors and has associated false negative and positive results. New technologies such as liquid based sampling may decrease but will not eliminate all false negative results. Regular screening and follow-up of unexplained clinical signs and symptoms are recommended to minimize false negative results. Please see the ASCCP website (www.asccp.org) for followup recommendations. If HPV testing was requested, correlation with the results is suggested (please call Microbiology at [phone] for results). CLINICAL INFORMATION: Menstrual History: Amenorrhea Date of Last Menstrual Period: {Not Provided} Contraceptive History: Intrauterine device Other Clinical Conditions: HPV testing requested. SPECIMEN DESCRIPTION: A: THIN PREP (CERVICAL/VAGINAL) THIN PREP PROCESS CELLULAR ENHANCEMENT ICD: F: A; RT IMAGE [id number] SNOMED CODES: A; X3A010 [id number] In cases where a pathologist has signed out the report, the service has been rendered in part by a resident. The signing pathologist has performed and is responsible for the reported pathologic evaluation. Seda Lerma APRN LAB PATHOLOGY ORDERABLES Jamilah leonardo Result SUNQUEST from Last 3 Months or Most Recently Relevant to Health Maintenance Insurance [facility] MEDICAID Care Teams Wire Inspector Relationship Specialty Start Date End Date Seda Lerma, ART GLASS SETTER [address] [place] [address] PCP - General 11/03/20
--- OUTSIDE RECORDS SUMMARY | 2025-01-19 09:55 | XMS_ITS | Encounter Summary ---
Author Organization Healthcare Address [address] [place] [address] Care Team Providers Care Water Team Leader Name Role Phone Seda Lerma APRN Primary Care Provider [phone] Reason for Visit * Reason Comments Med Refill Encounter Details Date Type Department Care Team (Late st Contact Info) Description 02/04/2024 Refill Obstetrics & Gynecology [address] [place] [address] Michelle Cherry MD [address] [place] [address] state, incidental Social History Tobacco Use Types Packs/Day Years [...] Date Recorded Patient Health Questionnaire-2 Score 0 01/23/2024 Hunger Vital Sign Answer Date Recorded Within [...] place to sleep or slept in a residential (including now)? No 09/16/2023 [place] Depression Scale Answer Date Recorded [place] Depression Scale Total 3 04/01/2023 The thought [...] on file documented as of this encounter Visit Diagnoses Diagnosis state, incidental documented in this encounter Additional Health Concerns Assessment Noted Time A fall risk assessment has been complete d for the patient 04/17/2023 10:10 AM EDT A Body Mass Index follow-up plan has been documented for the patient 01/23/2024 1:13 PM EDT documented as of this encounter Care Teams Water Team Leader Relationship Specialty Start Date End Date Seda Lerma, BUFFERER [address] [place] [id number] PCP - General 11/03/20 documented as of this encounter
--- OUTSIDE RECORDS SUMMARY | 2025-01-19 09:55 | XMS_ITS | Encounter Summary ---
Author Organization [facility] Address [address] [place] [address] Care Team Providers Care Time Clock Mechanic Name Role Phone Seda Lerma APRN Primary Care Provider [phone] Reason for Visit * Reason Comments Med Refill Encounter Details Date Type Department Care Team (Late st Contact Info) Description 09/11/2023 Refill [facility] [address] [place] [address] Seda Lerma, MIXER CRANE OPERATOR [address] [place] [address] Social History Tobacco Use Types Packs/Day Years Used Date Smoking Tobacco: Every Day Cigarettes 0.5 5 Passive Smoke Exposure: Current Alcohol Use Standard Drinks/Week Comments Not Currently 0 (1 standard drink = 0.6 oz pur e alcohol) PHQ-2 Answer Date Recorded Patient Health Questionnaire-2 Score 2 07/03/2023 [place] Depression Scale Answer Date Recorded [place] Depression Scale Total 3 04/01/2023 The thought of harming myself has occurred to me . Never 04/01/2023 PHQ-2A Answer Date Recorded Patient Health Questionnaire-2 Score 0 05/01/2023 Comments No Sex and Gender Information Value Date Recorded Sex Assigned at Not on file Legal Sex Female 5:59 PM EDT Gender Identity Not on file Sexual Orientation Not on file documented as of this encounter Miscellaneous Notes * Telephone Encounter - Elaina Cruz - 09/12/2023 3:33 PM EDT Lmtrc x1 documented in this encounter Plan of Treatment Not on file documented as of this encounter Visit Diagnoses Not on filedocumented in this encounter Additional Health Concerns Assessment Noted Time A fall risk assessment has been complete d for the patient 04/17/2023 10:10 AM EDT A Body Mass Index follow-up plan has been documented for the patient 07/03/2023 11:31 AM EST documented as of this encounter Care Teams Time Clock Mechanic Relationship Specialty Start Date End Date Seda Lerma APRN [address] [place] [address] PCP - General 11/03/20 documented as of this encounter
--- OUTSIDE RECORDS SUMMARY | 2025-01-19 09:55 | XMS_ITS | Encounter Summary ---
Author Organization Healthcare Address [address] [place] [address] Care Team Providers Care Assistant Unit Forester Name Role Phone Seda Lerma APRN Primary Care Provider [phone] Encounter Details Date Type Department Care Team ([facility] st Contact Info) Description 03/05/2021 Outside Procedure External Location [address] [place] [address] Provider, Cony [place] Social History Tobacco Use Types Packs/Day Years Used Date Smoking Tobacco: Every Day Smokeless Tobacco: Never Comments Unknown Sex and Gender Information Value Date Recorded Sex Assigned at Not on file Legal Sex Female 5:59 PM EDT Gender Identity Not on file Sexual Orientation Not on file COVID-19 Exposure Response Date Recorded In the last month, have you been in contact with someone who was confirmed or suspected to have Coronavirus / COVID-19? No / Unsure 03/05/2021 9:18 AM EDT documented as of this encounter Plan of Treatment Not on file documented as of this encounter Procedures Procedure Name Priority Date/Time Associated Diagnosis Comments XR HUMERUS LEFT 2+ VIEWS 03/05/2021 8:57 AM EDT documented in this encounter Results * XR Humerus Left 2+ Views (03/05/2021 8:57 AM EDT) Anatomical Region Laterality Modality Upper Extremities, Humerus Left Radio graphic Imaging 03/05/2021 8:57 AM EDT Narrative 03/05/2021 10:36 AM EDT [address] [address] Name: NEL DUONG Exam Date: 03/05/2021 : 1995 Age 25 Gender: F Physician: CHRISTINA LEMONS Facility: [facility] Facility HSV: Outpatient Exam: HUMERUS 2V MIN LT Left humerus TWO VIEW HISTORY: Pain. FINDINGS: Two views show no evidence of an acute, displaced fracture or dislocation of the visualized bony architecture. The joint spaces appear normal. A skin marker is seen overlying the distal margin a presumed contraceptive subcutaneous implant. The device measures approximately 4 cm, located approximately 1 cm deep to the skin surface. IMPRESSION: BB marker located along the distal margin of a contraceptive implant within the subcutaneous fatty tissues Dictated By: IVY GUILLEN Transcribed By: Tasneem Lopez Transcribed On: 03/05/2021 10:01 AM Electronically signed by: IVY GUILLEN 03/05/2021 Thank you for referring NEL DUONG to [facility]. Legally authenticated by WILMER MONTANA 2021-03-05 10:25:51 Procedure Note Provider, Generic [place] - 03/05/2021 [place] [address] Name: NEL DUONG Exam Date: 03/05/2021 : 1995 Age 25 Gender: F Physician: CHRISTINA LEMONS Facility: [facility] Facility HSV: Outpatient Exam: HUMERUS 2V MIN LT Left humerus TWO VIEW HISTORY: Pain. FINDINGS: Two views show no evidence of an acute, displaced fracture or dislocation of the visualized bony architecture. The joint spacesappear normal. A skin marker is seen overlying the distal margin a presumedcontraceptive subcutaneous implant. The device measures approximately 4 cm, located approximately 1 cm deep to the skin surface. IMPRESSION: BB marker located along the distal margin of a contraceptive implant within the subcutaneous fatty tissues Dictated By: IVY GUILLEN Transcribed By: Tasneem Lopez Transcribed On: 03/05/2021 10:01 AM Electronically signed by: IVY GUILLEN 03/05/2021 Thank you for referring NEL DUONG to [facility]. Legally authenticated by WILMER [place] 2021-03-05 10:25:51 Generic [place] Provider IMG XR PROCEDURES Fi nal Result documented in this encounter Visit Diagnoses Not on filedocumented in this encounter Additional Health Concerns Infection Onset Date Last Indicated Resolved Time COVID-19 Rule-Out 05/01/2023 05/01/2023 05/01/2023 10:12 PM EST COVID 19 (Confirmed) 05/01/2023 05/01/2023 023 5:23 AM EST documented as of this encounter Care Teams Assistant Unit Forester Relationship Specialty Start Date End Date Seda Lerma APRN [address] [place] [id number] PCP - General 11/03/20 documented as of this encounter
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
--- OUTSIDE RECORDS SUMMARY | 2025-01-19 09:55 | XMS_ITS | Encounter Summary ---
Author Organization Healthcare Address [address] [place] [address] Care Team Providers Care Bowling Ball Engraver Name Role Phone Seda Lerma APRN Primary Care Provider [phone] Encounter Details Date Type Department Care Team ([facility] st Contact Info) Description 01/06/2024 Outside Procedure External Location [address] [place] [phone] ProviderCony Social History Tobacco Use Types Packs/Day [...] place to sleep or slept in a [facility] (including now)? No 09/16/2023 [place] Depression Scale Answer Date Recorded [place] Depression Scale Total 3 04/01/2023 The thought [...] Name Priority Date/Time Associated Diagnosis Comments XR ANKLE LEFT 3+ VIEWS 01/06/2024 12:17 AM EDT documented in this encounter Results * XR Ankle Left 3+ Views (01/06/2024 12:17 AM EDT) Anatomical Region Laterality Modality Lower Extremities, Ankle Left Digital Radiography 01/06/2024 12:1 7 AM EDT Narrative 01/06/2024 1:11 [place] [address] Name: NEL DUONG Exam Date: 01/06/2024 : 1995 Age 28 years Gender: F Physician: NIMESH MADDEN Facility: [facility] Facility HSV: Outpatient Exam: ANKLE 3V LT FINAL REPORT TECHNIQUE: null CLINICAL HISTORY: ..left foot and ankle pain, fall COMPARISON: null FINDINGS: 3 view left ankle Comparison: None Findings: Bones/joints: No acute fracture or dislocation. Joint spaces maintained. No suspicious osseous lesions. Soft tissues: Prominent lateral soft tissue swelling. IMPRESSION: IMPRESSION: No acute fracture or dislocation. Prominent lateral soft tissue swelling. Authenticated and [facility] Dictated By: Maria Eugenia Mora Transcribed By: Transcribed On: 01/06/2024 1:08 AM Electronically signed by: Maria Eugenia Mora 01/06/2024 Thank you for referring NEL DUONG to [facility]. Legally authenticated by LISANDRA ZHANG 2024-01-06 01:08:41 Procedure Note Provider, Generic [place] - 01/06/2024 [place] [address] Name: NEL DUONG Exam Date: 01/06/2024 : 1995 Age 28 years Gender: F Physician: NIMESH MADDEN Facility: [facility] Facility HSV: Outpatient Exam: ANKLE 3V LT FINAL REPORT TECHNIQUE: null CLINICAL HISTORY: ..left foot and ankle pain, fall COMPARISON: null FINDINGS: 3 view left ankle Comparison: None Findings: Bones/joints: No acute fracture or dislocation. Joint spaces maintained. No suspicious osseous lesions. Soft tissues: Prominent lateral soft tissue swelling. IMPRESSION: IMPRESSION: No acute fracture or dislocation. Prominent lateral soft tissue swelling. Authenticated and [facility] Dictated By: Maria Eugenia Mora Transcribed By: Transcribed On: 01/06/2024 1:08 AM Electronically signed by: Maria Eugenia Mora 01/06/2024 Thank you for referring NEL DUONG to [facility]. Legally authenticated by LISANDRA ZHANG 2024-01-06 01:08:41 Generic [place] Provider IMG XR PROCEDURES Fi nal Result documented in this encounter Visit Diagnoses Not on filedocumented in this encounter Additional Health Concerns Assessment Noted Time A fall risk assessment has been complete d for the patient 04/17/2023 10:10 AM EDT A Body Mass Index follow-up plan has been documented for the patient 12/01/2023 10:39 AM EDT documented as of this encounter Care Teams Bowling Ball Engraver Relationship Specialty Start Date End Date Seda Lerma APRN [facility] [place] [address] PCP - General 11/03/20 documented as of this encounter
[2025-01-19 09:56] LABS: Bilirubin,Urine Negative (Negative); Color,Urine YELLOW (Yellow); Glucose,Urine (UA) Negative (Negative); Ketones,Urine 1+ (Negative); Leukocyte Esterase,Urine Negative (Negative); PH,Urine 6.5 (5.0-8.5); Protein,Urine 1+ (Negative); Specific Gravity, Urine 1.025 (1.005-1.030); Urobilinogen,Urine 0.2 EU/dl (0.2)
[2025-01-19 09:58] LABS: VBG HCO3 20.8 mmol/L (23-30); VBG PCO2 27.4 mmol/L (35-51); VBG PH 7.50 mmol/L (7.31-7.41); VBG PO2 136.4 mmol/L (28-40)
[2025-01-19 09:58] LABS: Hematocrit 42.5 % (37.0-47.0); Hemoglobin 14.6 g/dL (12.2-16.2); Immature Granulocytes % 0.3 %; Mean Corpuscular HGB Conc 34.4 g/dL (31.8-35.4); Mean Corpuscular Hemoglobin 31.5 pg (27.0-31.2); Mean Corpuscular Volume 91.8 fl (81-99); Nucleated Red Blood Cells % 0 %; Platelet Count 361 K/mm3 (142-424); Red Blood Count 4.63 M/mm3 (4.20-5.40); Red Cell Distribution Width-SD 45.8 fL; White Blood Count 12.2 K/mm3 (4.8-10.8)
[2025-01-19 10:00] LABS: Lactate Venous 6.0 mmol/L (0.4-2.0)
[2025-01-19 10:01] LABS: Albumin Level 4.4 g/dl (3.5-5.0); Chloride 105 mmol/L (98-107); Potassium 3.8 mmoL/L (3.5-5.1); Sodium 138 mmol/L (136-145)
[2025-01-19 10:02] LABS: Urine Pregnancy, HCG Qual. Negative (Negative)
[2025-01-19 10:04] LABS: Alanine Aminotransferase 28 U/L (12-78); Albumin/Globulin Ratio 1.3 (1.1-1.8); Alkaline Phosphatase 118 U/L (38-126); Anion Gap 16.8 mEq/L (5-15); Aspartate Amino Transferase 39 U/L (14-36); Bilirubin,Total 0.6 mg/dl (0.2-1.3); Blood Urea Nitrogen 9 mg/dl (7-17); Calcium 9.7 mg/dl (8.4-10.2); Carbon Dioxide 20 mmol/L (22.0-30.0); Creatinine Clearance Estimated 160 mL/min (50-200); Creatinine,Serum 0.60 mg/dl (0.52-1.04); Estimated Glomerular Filt Rate 119 ml/min (>60); GFR (African American) 144 ML/MIN (>60); Globulin 3.5 g/dL (1.3-3.2); Glucose 130 mg/dl (74-100); Lipase 58 U/L (23-300); Total Protein,Serum 7.9 g/dl (6.3-8.2)
[2025-01-19] MEDS: droPERidol 5MG/2ML VIAL 2.5 MG IV (10:04)
[2025-01-19 10:05] LABS: Acetaminophen < 10 ug/ml (10-30); Magnesium 1.7 mg/dl (1.6-2.3); Salicylate < 1.0 mg/dL (2.0-20.0)
[2025-01-19] MEDS: LACTATED RINGERS 1000ML 1,920 ML 960 ML IV (10:05)
[2025-01-19 10:10] LABS: Bacteria,Urine Trace /lpf; RBC,Urine Occasional #/hpf (0-3)
[2025-01-19 10:11] LABS: Benzodiazepines Screen,Urine Negative ng/ml (<200)
[2025-01-19 10:12] LABS: Amphetamine/Metha Screen,Urine Negative ng/ml (<1000)
[2025-01-19 10:13] LABS: Barbiturates Screen,Urine Negative ng/ml (<200)
[2025-01-19 10:14] LABS: Methadone Screen,Urine Negative ng/ml (<300)
[2025-01-19 10:15] LABS: Opiate Screen,Urine Negative ng/ml (<300)
[2025-01-19 10:16] LABS: Phencyclidine Screen,Urine Negative ng/ml (<25)
[2025-01-19 10:21] LABS: T4 (Thyroxine) 10.5 ug/dl (5.53-11.0)
--- NOTE | 2025-01-19 10:27 | PC.NURSE ---
weston telesales specialist at bedside
--- NOTE | 2025-01-19 10:57 | CT_ITS ---
FINAL REPORT TECHNIQUE: Thin section axial images are obtained through the abdomen and pelvis after intravenous contrast. Reconstruction images were obtained from the axial data. Exam was performed using dose reduction techniques. This study was performed with techniques to keep radiation doses as low as reasonably achievable (ALARA). Individualized dose reduction techniques using automated exposure control or adjustment of mA and/or kV according to the patient's size were employed. CLINICAL HISTORY: gen abd pain/n/v COMPARISON: None FINDINGS: LUNG BASES: Lung bases are clear. Heart size is normal. LIVER: Homogeneous. No focal lesion. GALLBLADDER/BILIARY SYSTEM: Gallbladder is present. No gallstones. No biliary dilatation. SPLEEN: Unremarkable. PANCREAS: Unremarkable. ADRENALS: Unremarkable. KIDNEYS/URETERS/BLADDER: No hydronephrosis, renal mass, or renal stone. Unremarkable urinary bladder. GI TRACT: No small bowel obstruction or dilatation. Normal appendix. There is long segment colonic wall thickening with surrounding inflammatory change, consistent with colitis, inflammatory or infectious. PELVIC ORGANS: There is a left ovarian cyst measuring 3.6 cm in size, likely functional in this age group. An IUD is present predominantly within the cervix. A small amount of free fluid is present in the pelvis. LYMPH NODES/RETROPERITONEUM/MESENTERY: No lymphadenopathy. No abdominal aortic aneurysm. ABDOMINAL WALL: The abdominal wall is intact. FREE FLUID: No ascites. BONES: No acute osseous abnormality. Note is made of a subcutaneous focus of abnormal attenuation in the right buttocks, a finding of uncertain etiology. IMPRESSION: Long segment colonic wall thickening with surrounding inflammatory change, consistent with infectious or inflammatory colitis. 3.6 cm left ovarian cyst, likely functional in this age group. May follow with ultrasound examination at 6 or 10 weeks. Reviewed, Interpreted and Dictated by Neha Ely MD Transcribed by Candis Mcallister Authenticated and [facility]
[2025-01-19 10:59] LABS: Thyroid Stimulating Hormone 0.94 uIU/mL (0.465-4.68)
[2025-01-19 11:12] LABS: Hepatitis C Ab Qual. W/ RFX NEGATIVE (Negative)
[2025-01-19] MEDS: IOPAMIDOL-370 (76%);100ML BOTTLE 75 ML IV (11:24)
[2025-01-19] MEDS: SODIUM CHLORIDE 0.9% 10ML SYR (RAD ONLY) 10 ML IV (11:24)
[2025-01-19] MEDS: FAMOTIDINE 20MG/2ML VIAL 20 MG IV (11:50)
[2025-01-19] MEDS: SODIUM CHLORIDE 0.9% 10ML VIAL 8 ML IV (11:52)
[2025-01-19] MEDS: KETOROLAC 30MG/ML VIAL 15 MG IV (11:54)
[2025-01-19] MEDS: METOCLOPRAMIDE HCL 10MG/2ML VIAL 10 MG IVP (11:55)
[2025-01-19] MEDS: ACETAMINOPHEN 1,000MG/100ML VIAL 1000 MG IV (11:56)
--- NOTE | 2025-01-19 12:21 | PC.NURSE ---
Rounded on patient, no needs voiced at this time.
[2025-01-19 13:58] LABS: Reflex Lactic Add Lactic Reflex
--- NOTE | 2025-01-19 17:04 | PEERSUPPORT ---
Peer Support Note Patient Information Patient Information: DOS: 01/19/2025 ? Drug(s) of Choice: ETOH, Cocaine, THC ? Last Use: 01/18/2025 alcohol use 01/14/2025 cocaine use ? UDS Positive: ETOH, JULIA, THC ? Use Hx: Started drinking in early 20s, progressed to daily drinking, went to treatment in 2020, sober for 6 months, then returned to drinking, smokes thc, only uses cocaine when she binge drinks.? ? Current Use: Drinking 1 pint of vodka daily, during binge drinking, uses cocaine sometimes last time was almost a week ago. ? ? Previous MAT/MOUD: Vivitrol, [facility] in 2020 ? Current MAT/MOUD: None ? Desire for MAT/MOUD: Interested in Vivitrol Injection- says she done well with it before then stopped getting the shot. ? [facility] ? Longest Length of Sobriety: 6 Months ? Support System: Friend ? Legal Issues: None ? Potential Barriers: -No cell phone -Recent break up, father of children now have children. -Recent relocation to [place], unstable housing/ roommate ? Insurance: [employer] ? Harm reduction: -Connection to [facility] Peer Support -Education on [facility]SH[facility] -Treatment referral/ resources -Transportation arrangement provided- [facility] a [employer] [facility], [employer]? ? Motivation for Change: -Pt stated she does not want to wake up sick and tired any more, she is aware that her situation and circumstances are and have been stressful that led her to drink and use. She identifies her mental health and emotional health are both issues. She is willing to commit to inpatient treatment today, understanding the importance of her wellbeing and ability to manage life. ? Ps shared personal experience instilling hope and strength by focusing on the process of treatment in to a sustainable recovery. ? Ps facilitated - [facility] intake assessment via phone -Arranged transportation through [facility] Care a Van to pt home, then back to [facility]. -Transportation provided by [facility] for direct transport to inpatient facility. ? [facility] pt before leaving with [facility] transportation. ? Pt receptive, expressing gratitude for support and compassion shown. ? Pt will follow up with ps, once completed program for after care plan for maintenance of sobriety and stability. ? Ps informed pt of outpatient treatment and services, as well as meetings local in [place]. ? Plan of Action: -[facility] transport from [facility] to inpatient facility. -Pt to follow up with ps following completion of program
== END 2025-01-19 14:41 | disposition other institution (70) ==
PROVIDERS: Emergency Provider Emergency Medicine
DX: K52.9 Noninfective gastroenteritis and colitis, unspecified (principal); N83.202 Unspecified ovarian cyst, left side; F10.10 Alcohol abuse, uncomplicated; F19.10 Other psychoactive substance abuse, uncomplicated; Y90.2 Blood alcohol level of 40-59 mg/100 ml
CPT/HCPCS: 74177; 80053; 80307; 80320; 80329; 81001; 81025; 82803; 83690; 83735; 84436; 84443; 85025; 86803; 87389; 93005; 96361; 96374; 96375; 99285; J0131; J1200; J1790; J1885; J2405; J2765; J7120; Q9967